=== PATIENT | female | born 1985 | race Hispanic/Latino ===

== ENCOUNTER 2020-05-22 16:20 | Inpatient (IN) | payer SELFPAY ==
--- NOTE | 2020-05-22 18:03 | Event Note ---
ED Screening Note Date of service: 05/22/20 Time: 18:01 ED Screening Note: 24-year-old female presents with abdominal pain and pressure with diarrhea that is foul-smelling and sometimes constipation. This initial assessment/diagnostic orders/clinical plan/treatment(s) is/are subject to change based on patients health status, clinical progression and re- assessment by fellow clinical providers in the ED. Further treatment and workup at subsequent clinical providers discretion. Patient/guardian urged not to elope from the ED as their condition may be serious if not clinically assessed and managed. Initial orders include: Labs,
[2020-05-22 18:31] LABS: Basophils # (Auto) 0.1 K/mm3 (0.0-0.1); Basophils % (Auto) 1.2 % (0.0-1.8); Eosinophils # (Auto) 0.5 K/mm3 (0.0-0.4); Eosinophils % (Auto) 7.6 % (0.0-4.3); Hematocrit 38.9 % (30.3-42.9); Hemoglobin 13.3 gm/dl (10.1-14.3); Lymphocytes # (Auto) 2.4 K/mm3 (1.2-5.4); Lymphocytes % (Auto) 35.6 % (13.4-35.0); Mean Corpuscular HGB Conc 34 % (30-34); Mean Corpuscular Volume 88 fl (79-97); Monocytes # (Auto) 0.5 K/mm3 (0.0-0.8); Monocytes % (Auto) 7.3 % (0.0-7.3); Platelet Count 249 K/mm3 (140-440); Red Blood Count 4.41 M/mm3 (3.65-5.03); Red Cell Distribution Width 12.5 % (13.2-15.2)
[2020-05-22 18:47] LABS: Alanine Aminotransferase 32 units/L (7-56); Albumin 3.9 g/dL (3.9-5); BUN/Creatinine Ratio 11; Blood Urea Nitrogen 11 mg/dL (7-17); Hemolysis Index 87
[2020-05-22 19:24] LABS: Bacteria,Urine 1+ /HPF (Negative); Bilirubin,Urine NEG (Negative); Blood,Urine NEG (Negative); Color,Urine Yellow (Yellow); Mucus,Urine 3+ /HPF; Protein,Urine <15 mg/dL mg/dL (Negative)
[2020-05-22] MEDS ORDERED: MORPHINE 4 MG/1 ML INJ IV ONE (20:58)
[2020-05-22] MEDS ORDERED: ONDANSETRON 4 MG/2 ML INJ IV ONE (20:58)
[2020-05-22] MEDS ORDERED: SODIUM CHLORIDE 0.9% 1000 ML 1,000 ML IV ONE (20:58)
--- NOTE | 2020-05-22 21:58 | Emergency Department Report ---
ED Abdominal Pain HPI - General Chief Complaint: Abdominal Pain Stated Complaint: STOMACH PAIN Time Seen by Provider: 05/22/20 20:43 Source: patient Mode of arrival: Ambulatory Limitations: No Limitations - History of Present Illness Initial Comments: This is a 34-year-old female nontoxic, well nourished in appearance, no acute signs of distress presents to the ED with c/o of nausea and vomiting and abdominal pain several days. Stated intermittent diarrhea with last being about 2 days ago. Patient describes vomiting as food content and yellow gastric acid. Patient describes abdominal pain as cramping and aching with level of 8/10 diffuse. Patient denies chest pain, short of breath, fever, hemoptysis, blood in stool, chills, headache, stiff neck, numbness or tingling. Patient denies any diarrhea or constipation. Denies any blood in stool. Patient denies any recent travels. Patient denies any allergies or significant PMH. MD Complaint: abdominal pain -: days(s) Location: diffuse Radiation: none Migration to: no migration Severity scale (0 -10): 8 Quality: cramping, aching Consistency: constant Improves With: nothing Worsens With: nothing Associated Symptoms: nausea, vomiting, diarrhea. denies: fever, chills, constipation, dysuria, hematemesis, hematochezia, melena, hematuria, anorexia, syncope - Related Data Allergies Allergy/AdvReac Type Severity Reaction Status Date / Time No Known Allergies Allergy Verified 05/23/20 00:15 ED Review of Systems ROS: Stated complaint: STOMACH PAIN Other details as noted in HPI Constitutional: denies: chills, fever Eyes: denies: eye pain, eye discharge, vision change ENT: denies: ear pain, throat pain Respiratory: denies: cough, shortness of breath, wheezing Cardiovascular: denies: chest pain, palpitations Endocrine: no symptoms reported Gastrointestinal: abdominal pain, nausea, vomiting, diarrhea. denies: constipation, hematemesis, melena, hematochezia Genitourinary: denies: urgency, dysuria, discharge Musculoskeletal: denies: back pain, joint swelling, arthralgia Skin: denies: rash, lesions Neurological: denies: headache, weakness, paresthesias Psychiatric: denies: anxiety, depression Hematological/Lymphatic: denies: easy bleeding, easy bruising ED Past Medical Hx - Past Medical History Previous Medical History?: No - Surgical History Additional Surgical History: Tonsilectomy - Social History Smoking Status: Current Every Day Smoker Substance Use Type: None ED Physical Exam - General Limitations: No Limitations General appearance: alert, in no apparent distress - Head Head exam: Present: atraumatic, normocephalic - Eye Eye exam: Present: normal appearance - Neck Neck exam: Present: normal inspection, full ROM. Absent: tenderness, meningismus, lymphadenopathy - Respiratory Respiratory exam: Present: normal lung sounds bilaterally. Absent: respiratory distress, wheezes, rales, rhonchi, stridor, chest wall tenderness, accessory muscle use, decreased breath sounds, prolonged expiratory - Cardiovascular Cardiovascular Exam: Present: regular rate, normal rhythm. Absent: systolic murmur, diastolic murmur, rubs, gallop - GI/Abdominal GI/Abdominal exam: Present: soft, normal bowel sounds - Extremities Exam Extremities exam: Present: normal inspection - Back Exam Back exam: Present: normal inspection - Neurological Exam Neurological exam: Present: alert, oriented X3 - Psychiatric Psychiatric exam: Present: normal affect, normal mood - Skin Skin exam: Present: warm, dry, intact, normal color. Absent: rash ED Course Vital Signs 05/22/20 05/22/20 16:35 18:02 Temperature 98.0 F 98 F Pulse Rate 92 H 98 H Respiratory 18 18 Rate Blood Pressure 127/88 127/88 O2 Sat by Pulse 97 98 Oximetry - Reevaluation(s) Reevaluation #1: 05/23/20 01:51 Patient is speaking in full sentences with no signs of distress noted. - Consultations Consultation #1: 05/23/20 01:51 Patient has been consulted with Dr. Nunez about patient history, physical exam, and labs and agrees to the ED plan of care and admission. Consultation #2: 05/23/20 02:11 Patient has been consulted with Dr. King about patient history, physical exam, and labs/CT results and accepts patient to services. ED Medical Decision Making - Lab Data Result diagrams: 05/22/20 18:09 05/22/20 18:09 - Medical Decision Making 34-year-old female that presents with acute Rubi cystitis with cholelithiasis. Patient is stable and was examined by me. Patient consulted with Dr. Nunez and accepted with hospitalist Dr. King. Labs obtained. IV antibiotics administered. At time of admission, the patient does not seem toxic or ill in appearance. No acute signs of distress noted. Patient agrees to admission treatment plan of care. No further questions noted by the patient. Critical care attestation.: If time is entered above; I have spent that time in minutes in the direct care of this critically ill patient, excluding procedure time. ED Disposition Clinical Impression: Cholecystitis, acute with cholelithiasis Qualifiers: Biliary obstruction: without biliary obstruction Qualified Code(s): K80.00 - Calculus of gallbladder with acute cholecystitis without obstruction Disposition: OP ADMIT IP TO THIS HOSP Is pt being admited?: Yes Condition: Stable Referrals: PRIMARY CARE, [Primary Care Provider] - 3-5 Days
--- NOTE | 2020-05-22 22:44 | Cat Scan Report ---
CT abdomen pelvis w con INDICATION / CLINICAL INFORMATION: abd pain. TECHNIQUE: Axial CT imaging of abdomen and pelvis was obtained with IV contrast. Coronal and sagittal reformatte d imaging obtained and reviewed. All CT scans at this location are performed using CT dose reduction for ALARA by means of automated exposure control. COMPARISON: None available. FINDINGS: Please note timing of the contrast was suboptimal. However this remains a diagnostic exam. CT abdomen with contrast demonstrates grossly normal appearance of the liver, spleen, pancreas, kidne ys, and adrenal glands. The gallbladder is not distended, but the gallbladder wall appears to be mild ly thickened with probable pericholecystic inflammatory change, and possibly the presence of gallston es.. No free fluid noted. CT pelvis with contrast demonstrates a few simple cysts within the right ovary, the largest cyst desmond uring 3.2 cm in diameter. No free fluid. A normal appendix is present in the right lower quadrant. GI tract is grossly normal. Visualized lung bases are grossly clear. Review of osseous structures does not demonstrate any acute significant osseous abnormality. IMPRESSION: 1. Abnormal appearance of the gallbladder. Although I do not see gallbladder distention, I am concern ed that there may be gallbladder wall thickening and mild pericholecystic change. There is also sugge stion of gallstones but this is unclear. Gallbladder ultrasound is suggested for further evaluation. 2. Incidental finding of 2 right ovarian cysts, the largest of which measures 3.2 cm. No associated f ree fluid. Signer Name: Kim Valdez MD Signed: 05/22/2020 10:40 PM Workstation Name: [id number]
[2020-05-23] MEDS ORDERED: MORPHINE 4 MG/1 ML INJ IV ONE (00:01)
[2020-05-23] MEDS ORDERED: MORPHINE 4 MG/1 ML INJ ONE (00:03)
--- NOTE | 2020-05-23 00:54 | Ultrasound Report ---
ULTRASOUND ABDOMEN, LIMITED (RIGHT UPPER QUADRANT) INDICATION / CLINICAL INFORMATION: abd pain r upper. COMPARISON: CT abdomen/pelvis, 05/22/2020 FINDINGS: PANCREAS: Visualized portion shows no significant abnormality. LIVER: No significant abnormality. GALLBLADDER: The gallbladder contains gallstones and sludge. There was no definitive gallbladder wall thickening, the gallbladder is somewhat ill-defined with irregular borders.. BILE DUCTS: No significant abnormality. Common bile duct measures 2-3 mm mm. FREE FLUID: None. ADDITIONAL FINDINGS: None. IMPRESSION: 1. Gallbladder contains gallstones and sludge.. The overall appearance of the gallbladder is somewhat irregular, although I could not appreciate definitive gallbladder wall thickening. If there is clini vitaly concern for acute cholecystitis, a nuclear medicine HIDA scan could be obtained. 2. The remainder of the right upper abdomen is unremarkable. Signer Name: Kim Valdez MD Signed: 05/23/2020 12:50 AM Workstation Name: [id number]
[2020-05-23] MEDS ORDERED: PIPERACIL/TAZOBACTA 4.5/NS 100 4.5 GM/100 ML VIAL IV ONE ×2 (01:46→05:05)
[2020-05-23] MEDS ORDERED: ACETAMINOPHEN 325 MG TAB PO PRN (04:10)
[2020-05-23] MEDS ORDERED: ONDANSETRON 4 MG/2 ML INJ IV PRN (04:10)
[2020-05-23] MEDS ORDERED: SODIUM CHLORIDE 0.9% 1000 ML 1,000 ML IV SCH (04:15)
--- NOTE | 2020-05-23 04:39 | History and Physical Report ---
History of Present Illness Date of examination: 05/23/20 Date of admission: 05/23/2020 Chief complaint: Abdominal Pain History of present illness: 34-year-old -[place] female presenting to the emergency room today complaining of nausea and vomiting with abdominal pain for the past several days. She had intermittent diarrhea which has since resolved. Abdominal pain is said to be diffuse and crampy. Pain is about 8/10 in severity. She denies any fever or chills, no shortness of breath, no chest pain, no headache or dizziness, denies any bloody stool. Patient denies any sick contacts and no recent travel. She denies contact with anyone with COVID-19. Work-up today including CT scan of the abdomen and pelvis shows gallstones with cholecystitis. General surgeon Dr. Nunez has been consulted by the ER physician. Past History Past Medical History: No medical history Past Surgical History: tonsillectomy Social history: smoking (Current daily smoker) Family history: no significant family history Medications and Allergies Allergies Allergy/AdvReac Type Severity Reaction Status Date / Time No Known Allergies Allergy Verified 05/23/20 00:15 Active Meds: Active Medications Acetaminophen (Tylenol) 650 mg PO Q4H PRN PRN Reason: Pain MILD(1-3)/Fever >100.5/STEWART Sodium Chloride (Nacl 0.9% 1000 Ml) 1,000 mls @ 125 mls/hr IV DIRECT JAILENE Piperacillin Sod/Tazobactam Sod (Zosyn/Ns 4.5gm/100ml) 4.5 gm in 100 mls @ 200 mls/hr IV Q8HR JAILENE; Protocol Morphine Sulfate (Morphine) 2 mg IV Q4H PRN PRN Reason: Pain, Moderate (4-6) Ondansetron HCl (Zofran) 4 mg IV Q8H PRN PRN Reason: Nausea And Vomiting Sodium Chloride (Sodium Chloride Flush Syringe 10 Ml) 10 ml IV BID JAILENE Sodium Chloride (Sodium Chloride Flush Syringe 10 Ml) 10 ml IV PRN PRN PRN Reason: LINE FLUSH Review of Systems Constitutional: no fever, no chills Ears, nose, mouth and throat: no nasal congestion, no sore throat Cardiovascular: no chest pain, no palpitations Respiratory: no cough, no shortness of breath Gastrointestinal: abdominal pain, nausea, vomiting, no diarrhea Genitourinary Female: no pelvic pain, no flank pain, no dysuria, no hematuria Musculoskeletal: no neck pain, no low back pain Integumentary: no rash, no pruritis Neurological: no headaches, no confusion Psychiatric: no anxiety, no depression Exam - Constitutional Vitals: Temp Pulse Resp BP Pulse Ox 98 F 98 H 18 127/88 98 05/22/20 18:02 05/22/20 18:02 05/22/20 18:02 05/22/20 18:02 05/22/20 18:02 General appearance: Present: no acute distress, well-nourished - EENT Eyes: Present: PERRL, EOM intact. Absent: scleral icterus ENT: hearing intact, clear oral mucosa, dentition normal - Neck Neck: Present: supple, normal ROM - Respiratory Respiratory effort: normal Respiratory: bilateral: CTA - Cardiovascular Rhythm: regular Heart Sounds: Present: S1 & S2. Absent: gallop, systolic murmur, diastolic murmur, rub - Extremities Extremities: no ischemia, pulses intact, pulses symmetrical, No edema, Full ROM Peripheral Pulses: within normal limits - Abdominal General gastrointestinal: Present: soft, non-tender, non-distended, normal bowel sounds. Absent: mass - Integumentary Integumentary: Present: clear, warm, dry. Absent: rash - Musculoskeletal Musculoskeletal: strength equal bilaterally - Psychiatric Psychiatric: appropriate mood/affect, intact judgment & insight, memory intact, cooperative - Neurologic Neurologic: CNII-XII intact, no focal deficits, moves all extremities Results - Labs CBC & Chem 7: 05/22/20 18:09 05/22/20 18:09 Labs: Abnormal lab results 05/22/20 05/22/20 Range/Units 18:09 18:09 RDW 12.5 L (13.2-15.2) % Lymph % (Auto) 35.6 H (13.4-35.0) % Eos % (Auto) 7.6 H (0.0-4.3) % Eos # 0.5 H (0.0-0.4) K/mm3 Potassium 5.1 H (3.6-5.0) mmol/L Glucose 101 H (65-100) mg/dL Assessment and Plan - Patient Problems (1) Cholecystitis, acute with cholelithiasis Current Visit: Yes Status: Acute Qualifiers: Biliary obstruction: without biliary obstruction Qualified Code(s): K80.00 - Calculus of gallbladder with acute cholecystitis without obstruction Plan to address problem: Patient placed on analgesic medication and IV fluid. She is also placed on empiric IV antibiotics. General surgeon Dr. Nunez has been consulted for further evaluation and recommendation. (2) DVT prophylaxis Current Visit: Yes Status: Acute Plan to address problem: Patient placed on sequential compression device. (3) Full code status Current Visit: Yes Status: Acute
[2020-05-23] MEDS: MORPHINE 2 MG/1 ML INJ IV PRN ×3 (05:11→18:00)
[2020-05-23] MEDS ORDERED: MORPHINE 2 MG/1 ML INJ ONE (05:12)
--- NOTE | 2020-05-23 08:34 | Consultation ---
History of Present Illness Consult date: 05/23/20 Reason for consult: abdominal pain Requesting physician: CORBY DOSHI Chief complaint: generalized abdominal discomfort - History of present illness History of present illness: 34yo F presented to the emergency department with a recent onset of abdominal pain, bloating, diarrhea. Evaluation in the emergency department was concerning for acute cholecystitis. General surgery was consulted. Patient reports that she has had problems for years with these sorts of symptom s. Most recently on Wednesday, she had picked up some carryout food that immediately began causing her to have bloating symptoms and foul-smelling burps. That progressed to generalized abdominal pain and then eventually diarrhea. She continued to have prolonged feelings of bloating and discomfort. She had discomfort in the right upper quadrant as well as well as the right back. She has not kept track of which particular foods cause the symptoms. She did note that when she had fruits recently she had absolutely no problems. She does give a history for heartburn. She has never been treated for GERD symptoms. Denies any fever, chills, nausea, vomiting. Past History Past Medical History: No medical history Past Surgical History: tonsillectomy Social history: smoking (Current daily smoker - <1ppd). denies: alcohol abuse Family history: no significant family history Medications and Allergies Allergies Allergy/AdvReac Type Severity Reaction Status Date / Time No Known Allergies Allergy Verified 05/23/20 00:15 Active Meds: Active Medications Acetaminophen (Tylenol) 650 mg PO Q4H PRN PRN Reason: Pain MILD(1-3)/Fever >100.5/STEWART Sodium Chloride (Nacl 0.9% 1000 Ml) 1,000 mls @ 125 mls/hr IV DIRECT JAILENE Piperacillin Sod/Tazobactam Sod (Zosyn/Ns 4.5gm/100ml) 4.5 gm in 100 mls @ 200 mls/hr IV Q8HR JAILENE; Protocol Morphine Sulfate (Morphine) 2 mg IV Q4H PRN PRN Reason: Pain, Moderate (4-6) Last Admin: 05/23/20 05:11 Dose: 2 mg Documented by: Ondansetron HCl (Zofran) 4 mg IV Q8H PRN PRN Reason: Nausea And Vomiting Sodium Chloride (Sodium Chloride Flush Syringe 10 Ml) 10 ml IV BID JAILENE Sodium Chloride (Sodium Chloride Flush Syringe 10 Ml) 10 ml IV PRN PRN PRN Reason: LINE FLUSH Review of Systems - Constitutional chronic pain (recurrent symptoms over many years), no fever, no chills - Cardiovascular no chest pain, no shortness of breath - Respiratory no cough - Gastrointestinal abdominal pain, diarrhea, change in bowel habits, heartburn, indigestion, belching, dyspepsia/bloating, no hematemesis, no BRBPR, no melena, no hematochezia - Genitourinary Genitourinary: no dysuria - Muskuloskeletal other (Does have right mid back discomfort), no low back pain - Integumentary no rash, no pruritis, no jaundice Exam Vital Signs Temp Pulse Resp BP Pulse Ox 98.0 F 92 H 18 127/88 97 05/22/20 16:35 05/22/20 16:35 05/22/20 16:35 05/22/20 16:35 05/22/20 16:35 - General physical appearance Positive: no distress, no pain, other (Pleasant. Gets out of bed very easily. Does not appear toxic.) - Eyes Positive: normal occular movement. Negative: icteric - Respiratory Positive: normal expansion, normal respiratory effort, clear to auscultation - Cardiovascular Rhythm: regular - Abdomen Abdomen: Present: soft, tender (Only in lower abdomen.), bowel sounds normal. Absent: distended, guarding, rigid, wound, surgical scars - Integumentary no rash, no growths, no abnormal pigmentation - Neurologic Neurologic: alert and oriented to time, place and person, motor strength and sensation are grossly intact - Psychiatric Psychiatric: appropriate mood/affect, intact judgment & insight, cooperative Results - Labs 05/22/20 18:09 05/22/20 18:09 Abnormal lab results 05/22/20 05/22/20 Range/Units 18:09 18:09 RDW 12.5 L (13.2-15.2) % Lymph % (Auto) 35.6 H (13.4-35.0) % Eos % (Auto) 7.6 H (0.0-4.3) % Eos # 0.5 H (0.0-0.4) K/mm3 Potassium 5.1 H (3.6-5.0) mmol/L Glucose 101 H (65-100) mg/dL Diabetes panel 05/22/20 Range/Units 18:09 Sodium 137 (137-145) mmol/L Potassium 5.1 H (3.6-5.0) mmol/L Chloride 101.7 (98-107) mmol/L Carbon Dioxide 25 (22-30) mmol/L BUN 11 (7-17) mg/dL Creatinine 1.0 (0.6-1.2) mg/dL Glucose 101 H (65-100) mg/dL Calcium 9.0 (8.4-10.2) mg/dL AST 34 (5-40) units/L ALT 32 (7-56) units/L Alkaline Phosphatase 92 (35-129) units/L Total Protein 6.4 (6.3-8.2) g/dL Albumin 3.9 (3.9-5) g/dL Calcium panel 05/22/20 Range/Units 18:09 Calcium 9.0 (8.4-10.2) mg/dL Albumin 3.9 (3.9-5) g/dL Pituitary panel 05/22/20 Range/Units 18:09 Sodium 137 (137-145) mmol/L Potassium 5.1 H (3.6-5.0) mmol/L Chloride 101.7 (98-107) mmol/L Carbon Dioxide 25 (22-30) mmol/L BUN 11 (7-17) mg/dL Creatinine 1.0 (0.6-1.2) mg/dL Glucose 101 H (65-100) mg/dL Calcium 9.0 (8.4-10.2) mg/dL Adrenal panel 05/22/20 Range/Units 18:09 Sodium 137 (137-145) mmol/L Potassium 5.1 H (3.6-5.0) mmol/L Chloride 101.7 (98-107) mmol/L Carbon Dioxide 25 (22-30) mmol/L BUN 11 (7-17) mg/dL Creatinine 1.0 (0.6-1.2) mg/dL Glucose 101 H (65-100) mg/dL Calcium 9.0 (8.4-10.2) mg/dL Total Bilirubin 0.20 (0.1-1.2) mg/dL AST 34 (5-40) units/L ALT 32 (7-56) units/L Alkaline Phosphatase 92 (35-129) units/L Total Protein 6.4 (6.3-8.2) g/dL Albumin 3.9 (3.9-5) g/dL - Imaging CT scan - abdomen: report reviewed, image reviewed CT scan - pelvis: report reviewed, image reviewed US - abdomen: report reviewed, image reviewed Assessment and Plan - Patient Problems (1) Abdominal pain Current Visit: Yes Status: Acute Qualifiers: Abdominal location: generalized Qualified Code(s): R10.84 - Generalized abdominal pain Plan to address problem: Pt stable. Patient's history, exam, laboratory results, radiographic results do not support a diagnosis of acute cholecystitis. At most, she may have chronic cholecystitis. She has no tenderness at this time in the right upper quadrant. She has no nausea or vomiting. She may also have a component of GERD. Plan at this point will be to initiate PPI therapy. We will also check a HIDA scan. I am primarily looking for dysfunction of the gallbladder. Once this is done, we will most likely start her on a diet and if tolerated, will be allowed to be discharged. If there is suggestion of gallbladder dysfunction, we will discuss laparoscopic cholecystectomy as an outpatient. We will follow along. Please call with any questions. Time=30min
[2020-05-23] MEDS ORDERED: PANTOPRAZOLE 40 MG TAB PO SCH (10:00)
[2020-05-23] MEDS ORDERED: SINCALIDE 5 MCG VIAL IV ONE (11:45)
[2020-05-23] MEDS ORDERED: WATER FOR INJ Sterile (PF) 10 ML IV ONE (12:00)
[2020-05-23] MEDS: SUCRALFATE 1 GM TAB PO SCH ×2 (12:00→17:51)
[2020-05-23] MEDS ORDERED: PIPERACIL/TAZOBACTA 4.5/NS 100 4.5 GM/100 ML VIAL IV SCH (14:00)
--- NOTE | 2020-05-23 15:38 | Event Note ---
Date: 05/23/20 Due to miscommunication between radiology and the nursing staff, the HIDA scan was unable to be completed. Patient currently reports that her symptoms have completely resolved. She is tolerating a diet. She would like to go home. My recommendation is that she continue with the PPI twice a day for the next 30 days. I have offered that she can either call me or follow-up with me in the office in 2 weeks. If she is still having some symptoms, I will order the HIDA scan as an outpatient. I believe we are dealing with a chronic cholecystitis at best. I recommended that she stay on a low-fat no fried food diet for the next couple weeks. She agreed and she was appreciative. d/w Dr. Venegas
[2020-05-23 16:33] VITALS: BP 136/58
--- NOTE | 2020-05-23 18:24 | Discharge Summary ---
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 low-fat no fried food diet for the next couple weeks. Call Dr. Wilhelm's office if you have questions or concerns. If You have worsening symptoms contact MD or go to emergency room Follow up with: CIRO HALL MD [Primary Care Provider] - 3-5 Days JEROMY WIHLELM MD [Staff Physician] - 14 Days Prescriptions: Sucralfate [Carafate] 1 gm PO Q6HR #30 tablet Pantoprazole [Protonix TAB] 40 mg PO BID #60 tablet
== END 2020-05-23 19:31 | disposition home or self-care (01) | DRG 446 ==
LOC: ED 16:20 → 3A 05-23 04:11 → 3B-SURG 05-23 05:21
PROVIDERS: ADMIT Internal Medicine Geriatric Medicine; ATTEND Internal Medicine
DX: K80.00 Calculus of gallbladder with acute cholecystitis without obstruction (principal); F17.200 Nicotine dependence, unspecified, uncomplicated
CPT/HCPCS: 36415; 74177; 76705; 80053; 81001; 83690; 84703; 85025; G0378; J2270; J2405; J2543; J7030; Q9967